=== PATIENT | female | born 1980 | race Hispanic/Latino ===

== ENCOUNTER 2017-09-26 06:00 | Day surgery (SDC) | payer BC, OTHER ==
[2017-09-25 14:55] VITALS: BMI 23.6
[2017-09-26] MEDS ORDERED: Lactated Ringer's 1,000 ML IV ONE ×3 (06:54→13:23)
[2017-09-26] MEDS ORDERED: ceFAZolin IV 1 gm in Dextrose 1 GM/50 ML BAG IVPB ONE ×2 (07:13→07:47)
[2017-09-26 07:17] LABS: HEMATOCRIT 35.5 % (34.0-47.0); MEAN CELL VOLUME 91.4 fl (81.0-99.0); MEAN CORPUSCULAR HEMOGLOBIN 29.9 pg (27.0-31.0); MEAN CORPUSCULAR HGB CONC 32.7 g/dL (33.0-37.0)
[2017-09-26] MEDS ORDERED: Rocuronium 10 mg/ml (5 ml) ONE (07:21)
[2017-09-26] MEDS ORDERED: Succinylcholine 200 mg/10 ml Inj IV ONE (07:21)
[2017-09-26] MEDS ORDERED: Propofol 10 mg/ml Inj (20 ML) ONE (07:21)
[2017-09-26] MEDS ORDERED: Midazolam 2 MG/2 ML VIAL ONE (07:21)
[2017-09-26] MEDS ORDERED: ePHEDrine 50 mg/ml Inj ONE (07:21)
[2017-09-26] MEDS ORDERED: Lidocaine 4% (Laryng-O-Jet) Kit MM ONE (07:22)
[2017-09-26] MEDS: Bupivacaine 0.5% Inj(30mL) ONE ×2 (08:26→08:40)
[2017-09-26] MEDS ORDERED: Dexamethasone 4 mg/1 ml ONE (08:55)
[2017-09-26] MEDS ORDERED: Neostigmine Methylsulfate 2 MG/2 ML ML IV ONE (09:34)
[2017-09-26] MEDS ORDERED: Lactated Ringer's 1,000 ML IV SCH (10:00)
[2017-09-26 10:02] VITALS: O2SAT 100
[2017-09-26] MEDS: HYDROmorphone 0.5 mg/0.5 ml ISec IVP PRN ×2 (10:15→10:39)
[2017-09-26] MEDS ORDERED: Trimethobenzamide 200 mg/2 mL Inj IM ONE ×2 (13:45→14:08)
[2017-09-26 15:49] VITALS: RESP 18; TEMP 98
[2017-09-26 16:56] VITALS: PULSE 75
[2017-09-26 16:57] VITALS: BP 110/70
--- NOTE | 2017-10-07 10:14 | PCM.OP ---
Operative Report - Operative Report Date of Surgery/Procedure: 08/26/17 Time of Surgery/Procedure: 08:00 Surgeon: Dr. Hai Bradshaw [employer] Operator: Dr. Min Mccoy Anesthesia/Sedation: general/Dr. Vargas Pre-Operative Diagnosis: endometriosis and abdominal pain Post-Operative Diagnosis: endometriosis involving the rectum and appendix Indication for Surgery: as above Operative Findings: as above Procedure/Operation Description: 1-Excision ad-rectal endometriosis. 2- Appemndectomy. Brief History: This is a 37 year old woman already brought to the operating room by Dr. Mccoy when he asked for intraoperative general surgery consultation for endometriosi involving the rectum and appendix. Description of the Procedure: The patient had already been brought to the operatimng room by Dr. Mccoy (separate dictation). After taking control of the robotic console the rectal lesion was first addressed. Using blunt and sharp dissection with the aid of electrocautery the lesion was circumscribed circumferentially and lifted from the rectal wall with meticulous attention to hemostasis. Once the lesion was removed en-bloc it was separatley marked and sent to pathology. Our attetnion then turned to the appednix adn with shapr dissection, with the aid of electrocautery the mesentery was incised and the appnediceal artery was dessicated. The appendix was disswected to the base of the cecum and a double loop of 3-0 PDS was used to tie off the structure. The appendix was transected and sent to pathology as a separate specimen. Hemstasis was examnined and deemed adeqaute. The operation was then turned over to Dr. Mccoy (separate dictation). Estimated Blood Loss: 5 cc Complications: none Discharge & Condition: stable
--- NOTE | 2017-10-08 16:45 | OP ---
PROCEDURE DATE: 09/26/2017 SURGEON: Min Mccoy MD SLEEVE BASTER: Hai Bradshaw MD ANESTHESIA ADMINISTERED BY: Elizabeth Vargas MD PREOPERATIVE DIAGNOSES: Pelvic pain, endometriosis, dysmenorrhea, dyspareunia, and bladder pain. PROCEDURES: Cystoscopy with bilateral placement of stents and injection of IC-Green dye, bilateral ureterolysis, excision of endometriosis, additionally appendectomy performed by Dr. Hai Bradshaw from General Surgery called in for the procedure. COMPLICATIONS: None. ESTIMATED BLOOD LOSS: Minimal. INDICATION FOR THE PROCEDURE: The patient is a 37-year-old with a history of pelvic pain, dysmenorrhea, dyspareunia, and clinical evidence of endometriosis. Prior to the surgery, the patient was counseled with regards to the risks and benefits of the procedure and with regards to the probability of the surgery to eliminate her pain symptomatology. She agreed to proceed with the surgery and signed the consent. DESCRIPTION OF PROCEDURE: After adequate anesthesia was obtained, the patient was placed in a dorsal lithotomy position. She was prepped and draped. The surgeons were gowned and gloved. At this point, attention was in the vaginal area where under direct visualization, a cystoscope was inserted into the bladder. Both ureteral orifices appeared to be in a normal anatomical position. An open-ended ureteral stent was then placed in the left ureter all the way to the distal ureter and 5 mL of IC-Green were then injected under direct visualization. The catheter was then removed and it was then inserted in to the ureter all the way up to the right distal ureter and again 5 mL of IC-Green were then injected. The catheter was then removed. Again, the bladder was examined and pancystoscopy was performed and bladder being free of masses or lesions. At this point, a speculum was placed in the vagina. The anterior lip of the cervix was grasped and a hysteroscopy was performed under direct visualization revealing a normal-sized cavity with no masses or lesions. At this point, attention was on the abdomen where after re-gowning and re-gloving, an incision was made right below the umbilicus and an open laparoscopy technique was used to enter the abdominal cavity. The trocar was then placed and the abdomen insufflated. Under direct visualization, 3 additional ports were injected, left upper quadrant, right upper quadrant and left mid quadrant. At this point, the [employer] Xi robot was docked and the abdomen was visualized, the upper abdomen to be free of any lesions. The appendix had some abnormal features and the pelvis appeared to have implants of endometriosis both in the right, left pelvic side wall, posterior aspect of the uterus and right perirectal area. Dr. Bradshaw from General Surgery was called in and he performed a robotic appendectomy and at that point, I started the remaining of the procedure. Procedure was first started on the left pelvic side of the pelvis where the ureter was identified and a progressive excision was performed entering the retroperitoneal space and dissecting off the left ureter. The ureter was lateralized and a large swath of peritoneum was then eliminated. At this point, the ureter had been fully dissected and visualized utilizing fluorescent technology. At this point, attention was in the posterior aspect of the uterus where again an area in the rectovaginal space of potential endometriosis was identified and an incision was made circumferentially starting at the top and dissecting progressively posterior to the uterus and the cervix, excising a large area of peritoneum. At this point, attention was in the right hand side where the retroperitoneal space again entered and a progressive dissection was performed lateralizing the ureter and dissecting the area completely excising a large area of peritoneum containing endometriosis. At this point, the ureter was completely freed and this sample was also sent to pathology. Throughout this process, the hemostasis was also excellent. Additional area not containing endometriosis, but clearly inflammatory were also ablated utilizing energy. At this point, it was checked for hemostasis and appeared to be excellent. The patient's both ovaries appeared to be normal and tubes. At this point, the instruments were removed. The [employer] robot was undocked and the abdomen was desufflated. The incisions were closed in layers with PDS for the fascia and 4-0 Monocryl for the skin. At the end of the procedure, all tapes and instruments counts were correct. The patient tolerated the procedure well and taken to recovery room in excellent condition. Min Mccoy MD [facility]
== END 2017-09-26 17:10 | disposition home or self-care (01) ==
LOC: H.OPSURG 06:00
PROVIDERS: ATTEND Obstetrics & Gynecology Reproductive Endocrinology
DX: N80.0 Endometriosis of uterus (principal); E03.9 Hypothyroidism, unspecified; N94.6 Dysmenorrhea, unspecified; R10.2 Pelvic and perineal pain; N80.5 Endometriosis of intestine
CPT/HCPCS: 36415; 52332; 58578; 58662; 85027; 86850; 86900; 88305; C1729; J0330; J0690; J1100; J1170; J2001; J2250; J2405; J2704; J2710; J3010; J3250; J7030; J7040; J7120